=== PATIENT | female | born 1945 | race Caucasian/White ===

== ENCOUNTER → 2018-01-31 08:50 | Day surgery (SDC) | payer MEDICARE, OTHER ==
[2018-01-30 15:53] LABS: HEMATOCRIT 32.3 % (36.0-48.0); HEMOGLOBIN 10.9 g/dL (12-16); MCH 31.9 pg (26.0-34.0); MCHC 33.7 g/dL (31.0-37.0); MCV 94.4 fL (80.0-100.0); MEAN PLATELET VOLUME 9.7 fL (7.4-10.4); RBC 3.42 10x6/uL (4.00-5.40); RDW 13.1 % (11.5-14.5); WBC 6.8 10x3/uL (4.8-10.8)
[2018-01-30 16:24] LABS: ANION GAP 13.2 mmol/L (8-16); CALCIUM 8.6 mg/dL (8.5-10.1); CREATININE - SERUM 0.9 mg/dL (0.6-1.3); POTASSIUM - SERUM 4.2 mmol/L (3.5-5.1)
[~2018-01-31] VITALS: Ht 157.5 cm; Wt 73.5 kg
--- NOTE | ~2018-01-31 | OP ---
PATIENT NAME: PARISH LESTER MEDICAL RECORD: [id number] :47 LOCATION:[facility] ADMISSION DATE: SURGEON: KIESHA STEPHENS MD DATE OF OPERATION: 01/31/2018 PREOPERATIVE DIAGNOSIS: Proximal humerus fracture of the left humerus. POSTOPERATIVE DIAGNOSIS: Proximal humerus fracture of the left humerus. PROCEDURE: Intramedullary rodding of the humerus fracture on the left. SURGEON: Kiesha Stephens MD ANESTHESIA: General. INTRAOPERATIVE COMPLICATIONS: None. SUMMARY OF PATHOLOGIC FINDINGS: Essentially none. There was some degree of difficulty getting around the proximally placed suture anchors. OPERATIVE SUMMARY IN DETAIL: After obtaining the appropriate preoperative orthopedic surgery consent as well as anesthetic consultation, evaluation and clearance, the patient was brought to the operating room and placed on the operating table in supine position. After general laryngeal mask administered, the patient was placed in beach chair position. She was held firmly to the operating table using the vacuum pack suction system. All pressure points were well padded. Left upper extremity and shoulder was then prepped and draped in routine sterile fashion. The arm was held in Trimano arm holding device. The previously utilized incision for the patient's rotator cuff repair was utilized, taken down to the lateral edge of the rotator cuff. A small incision was made in the rotator cuff and the entry point for the humeral nail was created. Fluoroscopic guidance was then utilized to pass the ball tip guidewire down the humerus. Several sequential reaming was done to size 8.5. A size 8 nail was then put into place by 210 cm. This is the Daylin T2 humeral nail. It was placed in the appropriate depth in the humeral head as seen on AP and lateral fluoroscopic views. At this point, the proximal static locking nails were put in. This was followed by distal static interlocking nail. Having completed this, final radiographs were taken and submitted for radiologist review. Rotator cuff incision was then closed with #2 FiberWire. This was followed by #1 Vicryl, 2-0 Vicryl and skin rossana. Sterile dressings were applied. The patient was awakened, LMA was removed. She was taken to the recovery room in stable condition. All final needle and sponge counts were correct. 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 [address]
[~2018-01-31 08:50] MED LIST: GLUCOPHAGE500 MG PO; HYDROCODONE-APA1 TAB PO; IBUPROFEN600 MG PO; MULTIPLE VITAMI1 TA1 PO; OMEPRAZOLE20 M1 PO; PERCOCET 10/3251 TA1 PO
[2018-01-31 10:29] VITALS: Ht 157.5 cm; Wt 73.5 kg
== END | disposition home or self-care (01) ==
LOC: D.OPS 08:50 → D.PAN 16:00
PROVIDERS: Anesthesiology
DX: S42.202A Unspecified fracture of upper end of left humerus, initial encounter for closed fracture (principal)

== ENCOUNTER 2018-09-04 19:00 | Outpatient (CLI) | payer MEDICARE, OTHER ==
[2018-01-31 10:29] VITALS: BMI 29.7
== END 2018-09-04 23:59 | disposition home or self-care (01) ==
LOC: D.MAMMO 19:00
PROVIDERS: ATTEND Family Medicine
DX: Z12.31 Encounter for screening mammogram for malignant neoplasm of breast (principal)